=== PATIENT | male | born 1985 | race Caucasian/White ===

== ENCOUNTER 2021-11-13 15:37 | Emergency (ER) | payer SELFPAY ==
--- NOTE | 2021-11-13 15:43 | NUR ---
ATTEMPTED TO CALL TO TRIAGE, NO ANSWER IN LOBBY/OUTSIDE
--- NOTE | 2021-11-13 16:08 | NUR ---
SECOND NO ANSWER
--- NOTE | 2021-11-13 16:30 | NUR ---
3RD NO ANSWER
--- NOTE | 2021-11-13 16:30 | NUR ---
PATIENT LEFT WITHOUT BEING SEEN BY DR. JERRY. NO FURTHER CARE PROVIDED FOR PATIENT.
== END 2021-11-13 16:30 | disposition left against medical advice (07) ==
LOC: MED 15:37
DX: M54.9 Dorsalgia, unspecified (principal); Z53.21 Procedure and treatment not carried out due to patient leaving prior to being seen by health care provider